=== PATIENT | male | born 1995 | race Caucasian/White ===

== ENCOUNTER 2022-02-16 20:25 | Emergency (ER) | payer OTHER, MEDICAID, SELFPAY ==
[~2022-02-16] VITALS: Ht 182.9 cm; Wt 81.6 kg
[2022-02-16 20:32] VITALS: BP_SYST 122
--- NOTE | 2022-02-16 20:35 | NUR ---
Patient triaged by Josi and placed in the amb rose. VSS and patient appears in no acute distress at this time. Accompanied by ems , awaiting available bed, and MD notified of need for MSE.
--- NOTE | 2022-02-16 21:00 | NUR ---
Mrsa and covid swab done.Pt refused blood drawn.
--- NOTE | 2022-02-16 22:35 | NUR ---
Report given to Haim HEAD.
--- NOTE | 2022-02-16 23:00 | NUR ---
AT [facility] BEDSIDE FOR EVALUATION. PENDING DISPOSITION. WILL MONITOR NEEDED. TWO WORKFORCE SPECIALIST REMAIN AT THE BEDSIDE FOR SAFETY.
--- NOTE | 2022-02-16 23:03 | NUR ---
Spoke to Virginie from [facility] made aware pt being discharge.
--- NOTE | 2022-02-16 23:10 | NUR ---
PT DISCHARGED IN THE CARE OF TWO SPECTACLE TRUER BACK TO [facility] FOR RE ADMISSION. CHARGE NURSE ENDORSED TRANSPORT TO EMT [facility]. ALL QUESTIONS ANSWERED. PT REFUSED TO SIGN DISCHARGE PAPERWORK. PT TRANSPORTED IN STABLE CONDITION. COPY PROVIDED TO EMT [facility]
== END 2022-02-16 23:17 ==
LOC: SED 20:25
DX: F29 Unspecified psychosis not due to a substance or known physiological condition (principal); F20.9 Schizophrenia, unspecified; I10 Essential (primary) hypertension; F41.9 Anxiety disorder, unspecified; Z20.822 Contact with and (suspected) exposure to COVID-19
CPT/HCPCS: 87081; 99283